=== PATIENT | female | born 2000 | race Two or more races ===

== ENCOUNTER 2025-08-13 00:50 | Emergency (ER) | payer MEDICAID, SELFPAY ==
[2025-08-13 01:28] VITALS: BP 116/72; PULSE 97; RESP 16; TEMP 37.6; O2SAT 99
[2025-08-13 01:57] LABS: Basophils # (Auto) 0.0 Thou/mm3 (0.0-0.2); Basophils % (Auto) 0 % (0-2.5); Eosinophils # (Auto) 0.3 Thou/mm3 (0.0-0.5); Eosinophils % (Auto) 3 % (0-10); Hematocrit 36.4 % (36.0-46.0); Hemoglobin 11.8 g/dL (12.0-16.0); Immature Granulocytes Auto 0.04 Thou/mm3 (0.00-0.00); Lymphocytes # (Auto) 3.1 Thou/mm3 (1.0-4.8); Lymphocytes % (Auto) 31 % (10-50); Mean Corpuscular HGB Conc 32.4 g/dl (31.0-37.0); Mean Corpuscular Hemoglobin 26.3 pg (25.0-35.0); Mean Corpuscular Volume 81 fL (80-100); Monocytes # (Auto) 0.8 Thou/mm3 (0.0-0.8); Monocytes % (Auto) 8 % (0-12); Neutrophils # (Auto) 5.8 Thou/mm3 (1.8-7.7); Neutrophils % (Auto) 57 % (37-80); Nucleated Red Blood Cell # 0.00 Thou/mm3 (0.00-0.00); Nucleated Red Blood Cell % 0 /100 WBC (0); Platelet Count 345 Thou/mm3 (140-440); RDW Standard Deviation 45.9 fL (36.4-46.3); Red Blood Count 4.49 Miln/mm3 (4.00-5.20); White Blood Count 10.1 Thou/mm3 (3.6-11.0)
[2025-08-13 02:10] LABS: Collection Type, Urine Clean Catch
[2025-08-13 02:15] LABS: Alanine Aminotransferase 41 U/L (10-49); Albumin, Serum 4.1 gm/dL (3.5-5.0); Albumin/Globulin Ratio 1.4 (1.2-2.2); Alkaline Phosphatase 88 U/L (46-116); Amylase 32 U/L (30-118); Anion Gap 6 (7-16); Aspartate Amino Transferase 26 U/L (0-34); BUN/Creatinine Ratio 7 Ratio (12-20); Bilirubin,Total 0.4 mg/dL (0.3-1.2); Blood Urea Nitrogen < 5 mg/dL (9-23); Calcium 9.4 mg/dL (8.3-10.6); Calcium (Corrected) 9.4 mg/dL (8.5-10.1); Carbon Dioxide 27.5 mMol/L (20.0-31.0); Chloride 105 mMol/L (98-107); Creatinine (Component) 0.7 mg/dL (0.6-1.3); Globulin 2.9 gm/dL (2.3-3.5); Glucose 88 mg/dL (74-106); Osmolality,Calculated 271 (275-295); Potassium 4.3 mMol/L (3.4-5.1); Sodium 138 mMol/L (136-145); Total Protein 7.0 gm/dL (5.7-8.2); eGFR > 60 See Note
[2025-08-13 02:24] LABS: HCG Qualitative,Urine Positive
[2025-08-13 02:28] LABS: Bacteria,Urine Rare; Bilirubin,Urine Negative (Negative); Blood,Urine Negative (Negative); Clarity,Urine Turbid (Clear/Hazy); Color,Urine Lt-Yellow (Lt Yel-Yel); Glucose, Urine Negative (Negative); Ketones,Urine Negative (Negative); Leukocyte Esterase,Urine Positive (Negative); Nitrite,Urine Negative (Negative); PH,Urine 6.0 (5.0-7.0); Protein,Urine Negative (Neg - Trace); RBC,Urine 4 /hpf (0-3); Specific Gravity,Urine 1.016 (1.001-1.035); Squamous Epithelial Cell,Urine 15 /hpf (0-5); Urobilinogen,Urine Negative mg/dL (0.0-1.0); WBC,Urine 8 /hpf (0-5)
--- NOTE | 2025-08-13 03:17 | XR_ITS ---
Examination: Complete OB ultrasound, less than 14 weeks, transabdominal Date and time of exam: August 13, 2025, 0409 hrs. Indications: Onset pelvic pain today Technique: Obstetrical ultrasound images less than 14 weeks performed via transabdominal imaging Findings: Uterus 10.2 cm intrauterine gestational sac 0.8 cm corresponds to 5 weeks 4 days gestational age No pole No cardiac activity Right ovary 3.1 cm arterial flow Left ovary 4.3 cm arterial flow 27 x 16 x 18 mm cyst Impression: Empty intrauterine gestational sac corresponding to 5 weeks 4 days gestational age Recommend short-term follow-up transvaginal pelvic sonography to confirm embryonic viability
--- NOTE | 2025-08-13 03:17 | XR_ITS ---
Examination: Abdomen sonogram, Limited Date and time of exam: August 13, 2025 0416 hrs. Indications: Onset pelvic abdominal pain today Technique: Real-time palmer scale transabdominal sonographic images of the upper abdomen obtained. Findings: Normal gallbladder. Normal common bile duct 0.3 cm. Pancreatic head 2.6 cm Liver 19.4 cm fatty infiltration lobular contour Normal hepatopedal portal venous flow Patent IVC Impression: Normal gallbladder Moderate hepatomegaly, suspicious for primary hepatocellular disease
[2025-08-13 03:31] LABS: Beta HCG,Quantitative 1386 mIU/mL (<5.0)
--- NOTE | 2025-08-13 05:25 | PRELIM_ITS ---
Right upper quadrant abdominal ultrasound. August 13, 2025 at 0416 hours Clinical history: Abdominal pain. Technique: Grayscale and color flow images of the right upper quadrant are provided. Hepatic and portal veins were also imaged with color flow images. Comparison: No prior study is available for comparison. Findings: The liver is enlarged measuring 19.4 cm and demonstrates increased echogenicity with nodular contour. No intrahepatic biliary ductal dilatation. Borderline wall thickening of the gallbladder measuring 3 mm. No gallbladder calculus or pericholecystic fluid is demonstrated. The common bile duct is normal in caliber at 3 mm. The pancreas is unremarkable to the extent visualized. Impression: Fatty liver. Borderline wall thickening of the gallbladder with no evidence of calculi or pericholecystic fluid. Suggest follow-up with HIDA scan, if clinically indicated. Report Electronically Signed By: Adeel Adamson 08/13/2025 5:24:18 AM [EST]
--- NOTE | 2025-08-13 05:25 | PD.EDRME ---
Rapid Medical Screening Exam RME Arrival date/time: 08/13/25 00:50 This is a case of 55-year-old female with no medical history came in in the emergency room due to right upper quadrant pain sharp in character radiating to the right flank with nausea vomiting worsening of the symptoms this patient decided to sought consult here in the emergency room Chief Complaint: Abdominal Pain Time Seen by Provider: 08/13/25 00:52 Vital signs: Vital Signs Temperature 99.6 F 08/13/25 01:28 Pulse Rate 97 08/13/25 01:28 Respiratory Rate 16 08/13/25 01:28 Blood Pressure 116/72 08/13/25 01:28 Pulse Oximetry (%) 99 08/13/25 01:28 Oxygen Delivery Method Room Air 08/13/25 01:28
[2025-08-13 05:56] VITALS: BP 141/87; PULSE 94; RESP 17; TEMP 36.7; O2SAT 100
--- NOTE | 2025-08-13 05:57 | PRELIM_ITS ---
Obstetric ultrasound (transabdominal ). August 13, 2025 0409 hours Clinical history: Abdominal pain. Technique: Real-time ultrasound was performed using Duplex scanning including arterial inflow, venous outflow, color and spectral Doppler analysis of both ovaries. Comparison: No prior study is available for comparison. Findings: A small anechoic sac-like structure is noted in the endometrial cavity in the lower uterine segment. The mean sac diameter measures 0.8 cm, corresponding to 5 weeks and 4 days. No pole or yolk sac is seen at this time. The right ovary measures 3.1 x 1.8 x 2.1 cm and is unremarkable. The left ovary measures 4.3 x 3.1 x 3.5 cm and is unremarkable. There is a 2.7 x 1.6 x 1.8 cm corpus luteal cyst in the left ovary. Both ovaries demonstrate color flow signal on Doppler evaluation. No adnexal mass is demonstrated. There is no free fluid in the pelvis. Impression: Small anechoic structure in the endometrial cavity in the lower uterine segment without yolk sac or pole. This may represent an early intrauterine gestational sac; however, the possibility of evolving or an occult ectopic cannot be entirely excluded. Recommend correlation with quantitative beta hCG and close sonographic follow-up. Left ovarian corpus luteal cyst. Report Electronically Signed By: Adeel Adamson 08/13/2025 5:56:30 AM [EST]
--- NOTE | 2025-08-13 07:19 | PD.EDABDPN ---
ED Abdominal Pain RME/HPI General Chief Complaint: Abdominal Pain Stated complaint: ABD PAIN Time seen by provider: 08/13/25 00:52 Arrival date/time: 08/13/25 00:50 Limitations: no limitations RME / HPI RME / HPI narrative: 08/13/25 00:50 This is a case of 55-year-old female with no medical history came in in the emergency room due to right upper quadrant pain sharp in character radiating to the right flank with nausea vomiting worsening of the symptoms this patient decided to sought consult here in the emergency room Dr. Whalen evaluation: Patient is a 25-year-old female is in the emergency department concerns for abdominal pain. Related Data Allergies Allergy/AdvReac Type Severity Reaction Status Date / Time No Known Allergies Allergy Verified 08/13/25 00:55 ED Exam General Limitations: Present no limitations General appearance: Present in no apparent distress Head Head exam: Present atraumatic and normocephalic Eye Eye exam: Present normal appearance, PERRL and EOMI ENT ENT exam: Present normal exam, normal oropharynx and mucous membranes moist Neck Neck exam: Present normal inspection and full ROM Chest Chest inspection: Present normal inspection and symmetric chest wall rise Respiratory Respiratory exam: Present normal lung sounds bilaterally; Absent respiratory distress or wheezes Cardiovascular Cardiovascular exam: Present regular rate and normal rhythm Abdominal Exam Abdominal exam: Present soft; Absent distention, tenderness, guarding, rebound or rigidity Back Exam Back exam: Present normal inspection Neurological Exam Neurological exam: Present alert, oriented X3, normal gait and motor sensory deficit Psychiatric Psychiatric exam: Present normal affect and normal mood Skin Skin exam: Present warm, dry and intact Course Quality Measures none Orders Category Date Time Status MRI Screening NOW Care 08/13/25 07:35 Active MR abdomen wo con Stat Exams 08/13/25 Ordered US OB <= 14 weeks fetus Stat Exams 08/13/25 03:17 Taken US gall bladder Stat Exams 08/13/25 03:17 Taken Amylase Stat Lab 08/13/25 01:40 Completed Beta HCG,Quantitative Stat Lab 08/13/25 01:40 Completed CBC Stat Lab 08/13/25 01:40 Completed Comprehensive Metabolic Panel Stat Lab 08/13/25 01:40 Completed HCG Qualitative,Urine Stat Lab 08/13/25 02:04 Completed Urinalysis Stat Lab 08/13/25 02:04 Completed Vital Signs Vital signs: Vital Signs Temperature 99.6 F 08/13/25 01:28 Pulse Rate 97 08/13/25 01:28 Respiratory Rate 16 08/13/25 01:28 Blood Pressure 116/72 08/13/25 01:28 Pulse Oximetry (%) 99 08/13/25 01:28 Oxygen Delivery Method Room Air 08/13/25 01:28 Abdominal Pain MDM MDM Narrative MDM Narrative:: Patient is a 25-year-old female seen emerged part concerns for abdominal pain. Vital signs and exam as listed. Prior provider evaluated patient. Ordered labs, right upper quadrant ultrasound as well as OB ultrasound. Labs without any acute hematologic abnormality, patient hemoglobin is 11.8. Patient without any acute electrolyte abnormality. No transaminitis, patient is with a beta-hCG of 1386. Urinalysis positive for leuk esterase, 4 RBCs 8 WBCs 15 squames rare bacteria. Given patient is a esterase positive and has white blood cells we will treat for urinary tract infection given that she is and has abdominal pain. Right upper quadrant ultrasound with fatty liver and borderline wall thickening of the gallbladder with no evidence of calculi or pericholecystic fluid. OB ultrasound with small anechoic structure in the endometrial cavity in the lower uterine segment without yolk sac or pole. Per radiology report could represent an early intrauterine gestational sac, evolving or an occult ectopic . Patient also has a left ovarian corpus luteal cyst. 7:45a consulted Dr. Thomas on-call client operations manager. Discussed findings on OB ultrasound, hCG as well as right upper quadrant ultrasound. Does not recommend MRI or further imaging at this time. Recommend the patient return to the emergency department in 48 hours for repeat beta-hCG testing and reassessment, given history exam and workup thus far. Recommends patient need a low-fat diet, and modify lifestyle to help with symptoms. Given patient does not have a transaminitis, does not have any tenderness palpation on my exam, no fever no leukocytosis, less likely cholecystitis at this time, plan is reasonable. Updated patient, patient in agreement, and is requesting to go home. I advised patient to return to the emergency department in 48 hours for repeat beta-hCG testing, and repeat ultrasounds. I gave her extensive return precautions including fever worsening pain difficulty tolerating oral intake or any other symptom of concern. Patient is GCS 15, understands the plan, in agreement will return for reassessment. Patient data External records reviewed:: None Clinical information provided by:: patient Social determinants that could affect healthcare access:: none Patient has the following chronic illnesses:: None How is presenting disease/condition affected by chronic disease/condition?: no chronic disease Evaluation data The following diagnostics were reviewed and interpreted by me:: lab results and radiology exam(s) Lab and/or radiology exams considered but not ordered:: none Interpretation Summary: see [facility] Medications / Prescriptions Medications or Prescriptions considered but not ordered:: None Medication administrations:: See above Consultations Consultation(s) initiated? (list below): Yes Consultation #1 (Physician, Specialty, Details): See MDM Diagnosis Differential diagnosis abdominal pain: other (See MDM) Most likely diagnosis given after review of the tests above:: See [facility] Admission Indicated Admission indicated?: not indicated Admission Request Was there a request for admission?: No Disposition Plan Disposition Plan: Discharge Discharge Attestation Discharge Attestation: The patient and all family members were given an opportunity to ask questions and understood the discharge instructions. Discharge instructions specifically effects, indications for sooner follow up or return to the emergency department, and the expected course of current diagnosis. Patient condition: Stable Discharge Plan Plan Patient Disposition: HOME (Self Care) Prescriptions/Referrals Referrals: No Primary/Family,Physician [Primary Care Provider] - In 1 week Problem List Clinical Impression: Elevated serum hCG Patient/Caregiver Discharge Instructions Additional Instructions: Your beta-hCG today was 1386. Your pelvic ultrasound identified a small structure within your uterus however unclear if this is an early , miscarriage, or possible developing ectopic . For this reason it has been important that you return to the emergency department in 48 hours to have repeat testing of your beta hCG, as well as pelvic ultrasound. If you develop worsening abdominal pain, fever, or any other symptom of concern please return immediately for further assessment and evaluation. Print Language: Bhutanese Stand Alone Forms: [employer] Award Info., Patient Portal Info Letter
[2025-08-13 07:58] VITALS: BP 126/92; PULSE 85; RESP 16; O2SAT 100
== END 2025-08-13 07:59 | disposition home or self-care (01) ==
PROVIDERS: Nurse Practitioner Family; Emergency Provider Emergency Medicine
DX: R89.1 Abnormal level of hormones in specimens from other organs, systems and tissues (principal); N83.12 Corpus luteum cyst of left ovary; K76.0 Fatty (change of) liver, not elsewhere classified; N39.0 Urinary tract infection, site not specified; R10.2 Pelvic and perineal pain
CPT/HCPCS: 36415; 76705; 76801; 80053; 81001; 81025; 82150; 84702; 85025; 99284

== ENCOUNTER 2025-08-17 02:02 | Emergency (ER) | payer MEDICAID, SELFPAY ==
[2025-08-17 02:11] VITALS: BP 113/76; PULSE 96; RESP 15; TEMP 37.4; O2SAT 96
[2025-08-17 02:34] LABS: Basophils # (Auto) 0.0 Thou/mm3 (0.0-0.2); Basophils % (Auto) 0 % (0-2.5); Eosinophils # (Auto) 0.3 Thou/mm3 (0.0-0.5); Eosinophils % (Auto) 4 % (0-10); Hematocrit 35.0 % (36.0-46.0); Hemoglobin 11.5 g/dL (12.0-16.0); Immature Granulocytes Auto 0.02 Thou/mm3 (0.00-0.00); Lymphocytes # (Auto) 2.9 Thou/mm3 (1.0-4.8); Lymphocytes % (Auto) 34 % (10-50); Mean Corpuscular HGB Conc 32.9 g/dl (31.0-37.0); Mean Corpuscular Hemoglobin 26.6 pg (25.0-35.0); Mean Corpuscular Volume 81 fL (80-100); Monocytes # (Auto) 0.6 Thou/mm3 (0.0-0.8); Monocytes % (Auto) 8 % (0-12); Neutrophils # (Auto) 4.5 Thou/mm3 (1.8-7.7); Neutrophils % (Auto) 54 % (37-80); Nucleated Red Blood Cell # 0.00 Thou/mm3 (0.00-0.00); Nucleated Red Blood Cell % 0 /100 WBC (0); Platelet Count 320 Thou/mm3 (140-440); RDW Standard Deviation 45.3 fL (36.4-46.3); Red Blood Count 4.32 Miln/mm3 (4.00-5.20); White Blood Count 8.3 Thou/mm3 (3.6-11.0)
--- NOTE | 2025-08-17 02:42 | EDNOTE_ITS ---
ED Female Urogenital RME/HPI General Chief complaint: General Adult/Misc Complain Stated complaint: FOLLOW UP HCG/US Time Seen by Provider: 08/17/25 02:18 Arrival date/time: 08/17/25 02:02 25F with no significant PMH presents to ED because she was told to come back for repeat Beta HCG +/- US. Patient was here several days ago for ab pain and was incidentally found to be . Patient denies any vaginal bleeding. Patient currently has no symptoms or complaints. Limitations: no limitations Related Data Previous Rx's ?Medication ?Instructions ?Recorded cephalexin 500 mg capsule 500 mg PO QID #20 caps 08/13 Allergies Allergy/AdvReac Type Severity Reaction Status Date / Time No Known Allergies Allergy Verified 08/13/25 00:55 Review of Systems Review of Systems Systems Reviewed: All systems reviewed, normal except as documented Past Medical History Past Medical History CARDIAC: Negative Congestive Heart Failure RESPIRATORY: Negative Chronic Obstructive Pulmonary Disease (COPD) GENITOURINARY: Negative Renal Disease ENDOCRINE: Negative Diabetes Mellitus Type 1 or Diabetes Mellitus Type 2 Social History SMOKING STATUS: Never smoker ED Exam General Limitations: Present no limitations General appearance: Present alert and in no apparent distress Head Head exam: Present atraumatic Neck Neck exam: Present normal inspection, full ROM and trachea midline Chest Chest inspection: Present normal inspection and symmetric chest wall rise Neurological Exam Neurological exam: Present alert and oriented X3 Psychiatric Psychiatric exam: Present normal affect and normal mood Skin Skin exam: Present warm, dry, intact and normal color Course Quality Measures none Orders Category Date Time Status Beta HCG,Quantitative Stat Lab 08/17/25 02:30 Completed CBC Stat Lab 08/17/25 02:30 Completed CMP [Comprehensive Metabolic Panel] Stat Lab 08/17/25 02:30 Completed Vital Signs Vital signs: Vital Signs Temperature 99.4 F 08/17/25 02:11 Pulse Rate 96 08/17/25 02:11 Respiratory Rate 15 08/17/25 02:11 Blood Pressure 113/76 08/17/25 02:11 Pulse Oximetry (%) 96 08/17/25 02:11 Oxygen Delivery Method Room Air 08/17/25 02:11 O2 at 96% on RA and WNLs Urogenital - Female MDM Narrative MDM Narrative:: 25F with no significant PMH presents to ED because she was told to come back for repeat Beta HCG +/- US. Patient was here several days ago for ab pain and was incidentally found to be . Patient denies any vaginal bleeding. Patient currently has no symptoms or complaints. Physical exam reveals well-appearing female. Patient is afebrile, calm, and alert. Previous US showed empty gestation sac, which likely represents early given HCG was only 1.3k. HCG went up to 3.4k today. [employer] Saw Operator given. Patient data External records reviewed:: [facility] previous records Clinical information provided by:: patient Social determinants that could affect healthcare access:: none Patient has the following chronic illnesses:: none How is presenting disease/condition affected by chronic disease/condition?: no chronic disease Evaluation data The following diagnostics were reviewed and interpreted by me:: lab results Lab and/or radiology exams considered but not ordered:: ordered Interpretation Summary: above Medications / Prescriptions Medications or Prescriptions considered but not ordered:: not ordered Medication administrations:: n/a Consultations Consultation(s) initiated? (list below): No Diagnosis Urogenital Female Differential Diagnosis: urinary tract infection, bacterial vaginosis, trichomoniasis, cervicitis, ovarian cyst, vaginitis, ruptured ovarian cyst, cyst of Bartholin's gland, cystitis, dysmenorrhea and other (, miscarriage) Most likely diagnosis given after review of the tests above:: Admission Indicated Admission indicated?: not indicated Admission Request Was there a request for admission?: No Disposition Plan Disposition Plan: Discharge Discharge Attestation Discharge Attestation: The patient and all family members were given an opportunity to ask questions and understood the discharge instructions. Discharge instructions specifically effects, indications for sooner follow up or return to the emergency department, and the expected course of current diagnosis. Patient condition: Stable Discharge Plan Plan Patient Disposition: HOME (Self Care) Discharge Disposition comment: Stable Prescriptions/Referrals Prescriptions/Med Rec: No Action cephalexin 500 mg capsule 500 mg PO QID Qty: 20 0RF Problem List Clinical Impression: Currently Patient/Caregiver Discharge Instructions Education Materials: First Trimester Additional Instructions: Please follow-up with PCP/OBYGN within 24-48 hours and return immediately if symptoms worsen. Your hormone levels are trending as expected. Set-up first OB appt in the next few weeks. Print Language: Syriac Stand Alone Forms: Patient Portal Info Letter LINDSEY/JULIAN Supervising Physician LINDSEY/JULIAN Supervising Physician: Dr. Davison
[2025-08-17 02:58] LABS: Alanine Aminotransferase 40 U/L (10-49); Albumin, Serum 4.0 gm/dL (3.5-5.0); Albumin/Globulin Ratio 1.4 (1.2-2.2); Alkaline Phosphatase 84 U/L (46-116); Anion Gap 8 (7-16); Aspartate Amino Transferase 24 U/L (0-34); BUN/Creatinine Ratio 7 Ratio (12-20); Bilirubin,Total 0.4 mg/dL (0.3-1.2); Blood Urea Nitrogen < 5 mg/dL (9-23); Calcium 9.6 mg/dL (8.3-10.6); Calcium (Corrected) 9.6 mg/dL (8.5-10.1); Carbon Dioxide 27.3 mMol/L (20.0-31.0); Chloride 105 mMol/L (98-107); Creatinine (Component) 0.7 mg/dL (0.6-1.3); Globulin 2.8 gm/dL (2.3-3.5); Glucose 97 mg/dL (74-106); Osmolality,Calculated 276 (275-295); Potassium 3.8 mMol/L (3.4-5.1); Sodium 140 mMol/L (136-145); Total Protein 6.8 gm/dL (5.7-8.2); eGFR > 60 See Note
[2025-08-17 03:04] LABS: Beta HCG,Quantitative 3462 mIU/mL (<5.0)
== END 2025-08-17 03:10 | disposition home or self-care (01) ==
LOC: SERX 03:07
PROVIDERS: Physician Assistant; Emergency Provider Emergency Medicine; PCP Family Medicine
DX: R10.9 Unspecified abdominal pain (principal); Z33.1 Pregnant state, incidental
CPT/HCPCS: 36415; 80053; 84702; 85025; 99283